=== PATIENT | female | born 1945 | race Caucasian/White ===

== ENCOUNTER → 2020-08-18 10:41 | Outpatient (BNVA) | payer MEDICARE, MEDICAID, SELFPAY | PROVIDERS: PCP Internal Medicine Rheumatology; Visit Provider Surgery | DX: C50.912 Malignant neoplasm of unspecified site of left female breast (principal) | CPT/HCPCS: 99212 ==

== ENCOUNTER → 2020-09-21 10:30 | Outpatient (BNVA) | payer MEDICARE, MEDICAID, SELFPAY | PROVIDERS: PCP Internal Medicine Rheumatology; Visit Provider Surgery | DX: K94.23 Gastrostomy malfunction (principal) | CPT/HCPCS: 43762; 99212 ==

== ENCOUNTER → 2021-02-16 10:28 | Outpatient (BNVA) | payer MEDICARE, MEDICAID, SELFPAY | PROVIDERS: PCP Internal Medicine Rheumatology; Visit Provider Surgery | DX: C50.912 Malignant neoplasm of unspecified site of left female breast (principal) | CPT/HCPCS: 99212 ==

== ENCOUNTER → 2021-08-17 11:08 | Outpatient (BNVA) | payer MEDICARE, MEDICAID, SELFPAY | PROVIDERS: PCP Internal Medicine Rheumatology; Referring Provider Internal Medicine; Visit Provider Surgery | DX: C50.912 Malignant neoplasm of unspecified site of left female breast (principal) | CPT/HCPCS: 99212 ==

== ENCOUNTER 2021-10-10 02:56 | Emergency (ER) | payer MEDICARE, MEDICAID, SELFPAY ==
[2021-10-10 05:16] VITALS: BP 132/62; PULSE 78; O2SAT 95; BMI 29.5
[2021-10-10 05:23] VITALS: BP 106/62; PULSE 67; RESP 16; O2SAT 94
--- NOTE | 2021-10-10 05:26 | PC.NURSE ---
Pt coming from [facility] after her trach tube fell out. A nurse at the SNF was able to place the tube back in place but per facility policy, pt had to be sent to the ER for evaluation. Pt has no pain and is not in any respiratory distress. Pt is nonverbal and bedbound at baseline. Pt has hx of dementia and hemiplegia. Pt is calm at this time, no apparent respiratory distress. She leans to the left and has some contraction in her left arm, which is baseline. She is able to answer yes or no questions with a thumbs up. When asked, she has no pain and is feeling alright. Trach looks clean, non irritated, and patent. No interventions were needed. Pt is to be transported via ambulance back to [facility] at approx 7:30.
--- NOTE | 2021-10-10 06:03 | PC.NURSE ---
Nursing report given to MAT Joseph at [facility]. She states she has also spoken with the patients' family and has updated them as well. Opal verbalizes an understanding that the pt has an ambulance transport back to [facility] at 0730.
== END 2021-10-10 08:17 | disposition skilled nursing facility (03) ==
PROVIDERS: Emergency Provider Emergency Medicine
DX: Z43.0 Encounter for attention to tracheostomy (principal); F03.90 Unspecified dementia, unspecified severity, without behavioral disturbance, psychotic disturbance, mood disturbance, and anxiety
CPT/HCPCS: 99283; 99284

== ENCOUNTER → 2022-02-26 11:24 | Outpatient (BNVA) | payer MEDICARE, MEDICAID, SELFPAY | PROVIDERS: PCP Internal Medicine; Visit Provider Surgery | DX: C50.912 Malignant neoplasm of unspecified site of left female breast (principal) | CPT/HCPCS: 99212 ==

== ENCOUNTER → 2022-09-12 10:42 | Outpatient (BNVA) | payer MEDICARE, MEDICAID, SELFPAY | PROVIDERS: PCP Internal Medicine; Visit Provider Surgery | DX: Z85.3 Personal history of malignant neoplasm of breast (principal); G82.20 Paraplegia, unspecified | CPT/HCPCS: 99212 ==

== ENCOUNTER 2023-09-09 10:49 | Outpatient (AMB) | payer MEDICARE, MEDICAID, SELFPAY ==
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
== END 2023-09-09 11:13 | disposition home or self-care (01) ==
PROVIDERS: PCP Internal Medicine; Visit Provider Surgery
DX: C50.912 Malignant neoplasm of unspecified site of left female breast (principal)
CPT/HCPCS: 99213

== ENCOUNTER → 2023-09-09 10:49 | Outpatient (BNVA) | payer MEDICARE, MEDICAID, SELFPAY | PROVIDERS: PCP Internal Medicine; Visit Provider Surgery | DX: C50.912 Malignant neoplasm of unspecified site of left female breast (principal); Z17.0 Estrogen receptor positive status [ER+]; Z79.810 Long term (current) use of selective estrogen receptor modulators (SERMs) | CPT/HCPCS: 99212 ==